=== PATIENT | female | born 1990 | race African-American/Black ===

== ENCOUNTER 2021-03-16 17:35 | Emergency (ER) | payer OTHER ==
[~2021-03-16] VITALS: Ht 177.8 cm; Wt 79.0 kg
[2021-03-16 17:37] VITALS: BP 149/86
[2021-03-21] MEDS ORDERED: KDUR10 MT (10:16)
[2021-03-21] MEDS ORDERED: IBUP-2030 MT (10:16)
== END 2021-03-16 22:30 | disposition left against medical advice (07) ==
LOC: ER 19:43
DX: R10.9 Unspecified abdominal pain (principal); Z53.21 Procedure and treatment not carried out due to patient leaving prior to being seen by health care provider

== ENCOUNTER 2021-03-18 07:29 | Emergency (ER) | payer OTHER ==
[~2021-03-18] VITALS: Ht 177.8 cm; Wt 100.0 kg
[2021-03-18 11:09] LABS: BASOPHILS % 1.3 % (0.0-2.0); HEMATOCRIT. 30.6 % (36.0-48.0); HEMOGLOBIN. 10.8 g/dL (12.0-16.0); LYMPHOCYTES % 41.8 % (20.0-50.0); MEAN CORPUSCULAR HEMOGLOBIN 33.3 pg (28.0-32.0); MEAN CORPUSCULAR VOLUME 94.4 fL (81.0-99.0); MONOCYTES % 8.9 % (2.0-8.0); PLATELET 209 x1000/uL (130-400); RED BLOOD CELL COUNT 3.25 mill/uL (4.2-5.4); RED CELL DISTRIBUTION WIDTH 13.5 % (11.6-14.6)
[2021-03-18 11:58] LABS: CHLORIDE 109 mEq/L (98-107)
[2021-03-18 12:21] LABS: B-HCG QUANTITATIVE 7509 mIU/mL (<3)
[2021-03-18 13:30] VITALS: BP 133/82
[2021-03-18] MEDS ORDERED: METHOTREXATE SODIUM/PF 50 MG/2 ML VIAL IM NR (14:00)
[2021-03-18] MEDS ORDERED: PROPOFOL 200MG/20ML VIAL IV ONE (23:45)
[2021-03-18] MEDS ORDERED: HYDROMORPHONE HCL/PF 2MG/ML (OR) ONE (23:45)
[2021-03-18] MEDS ORDERED: ROCURONIUM BROMIDE 10MG/ML VIAL 5ML IV ONE (23:45)
[2021-03-19] MEDS ORDERED: METOPROLOL TARTRATE 5MG/5ML VIAL IV ONE (00:22)
[2021-03-19] MEDS ORDERED: GLYCOPYRROLATE 0.2 MG/ML 2ML VIAL ONE (01:19)
[2021-03-19] MEDS ORDERED: NEOSTIGMINE METHYLSULFATE 1MG/ML 10 ML VIAL ONE (01:19)
[2021-03-19] MEDS ORDERED: GABA-529 MT (03:47)
[2021-03-21] MEDS ORDERED: KDUR10 MT (10:16)
[2021-03-21] MEDS ORDERED: IBUP-2030 MT (10:16)
== END 2021-03-18 14:55 | disposition left against medical advice (07) ==
LOC: ER 07:29 → CANBEDREQ 14:53 → ER 14:55
DX: O00.90 Unspecified ectopic pregnancy without intrauterine pregnancy (principal); N93.9 Abnormal uterine and vaginal bleeding, unspecified; F17.210 Nicotine dependence, cigarettes, uncomplicated; O26.891 Other specified pregnancy related conditions, first trimester; Z3A.01 Less than 8 weeks gestation of pregnancy; Z88.0 Allergy status to penicillin
CPT/HCPCS: 36415; 76801; 76817; 80053; 81025; 84702; 85025; 86850; 86900; 86901; 87426; 88302; 99285; J1170; J2704; J2710; J3490; J9260

== ENCOUNTER 2021-03-18 15:10 | Inpatient (IN) | payer OTHER ==
[~2021-03-18] VITALS: Ht 170.2 cm; Wt 82.1 kg
[2021-03-18] MEDS ORDERED: MORPHINE SULFATE 4 MG/ML CPJ (NOT FOR IM USE) IV ONE (15:45)
[2021-03-18 17:49] LABS: BASOPHILS % 0.4 % (0.0-2.0); EOSINOPHILS % 0.1 % (0.0-5.0); HEMATOCRIT. 28.5 % (36.0-48.0); HEMOGLOBIN. 10.2 g/dL (12.0-16.0); LYMPHOCYTES % 12.8 % (20.0-50.0); MEAN CORPUSCULAR HEMOGLOBIN 33.5 pg (28.0-32.0); MEAN CORPUSCULAR VOLUME 93.9 fL (81.0-99.0); MEAN PLATELET VOLUME 8.4 fl (7.4-10.4); MONOCYTES % 4.1 % (2.0-8.0); NEUTROPHILS % 82.6 % (40.0-76.0); PLATELET 194 x1000/uL (130-400); RED BLOOD CELL COUNT 3.03 mill/uL (4.2-5.4); RED CELL DISTRIBUTION WIDTH 13.3 % (11.6-14.6)
[2021-03-18 18:00] LABS: CHLORIDE 110 mEq/L (98-107)
[2021-03-18 18:23] LABS: B-HCG QUANTITATIVE 6133 mIU/mL (<3)
[2021-03-18] MEDS ORDERED: METHOTREXATE SODIUM/PF 50 MG/2 ML VIAL IM NR (18:30)
[2021-03-18] MEDS ORDERED: ONDANSETRON HCL 4MG/2ML INJ IV PRN (21:00)
[2021-03-18] MEDS ORDERED: DEXT 5%/0.9% NACL KCL 20MEQ/L 1,000 ML IV ONE (21:00)
[2021-03-18] MEDS ORDERED: NALOXONE HCL 0.4MG/ML VIAL IV PRN (21:00)
[2021-03-18] MEDS: MORPHINE SULFATE 4 MG/ML CPJ (NOT FOR IM USE) IV PRN (21:41)
[2021-03-19] MEDS ORDERED: CLINDAMYCIN 900 MG PREMIX 50 ML IV ONE
[2021-03-19] MEDS ORDERED: HYDROMORPHONE HCL/PF 2MG/ML CPJ IV PRN (01:15)
[2021-03-19] MEDS ORDERED: MEPERIDINE HCL/PF 25MG/ML CPJ IV PRN (01:15)
[2021-03-19] MEDS ORDERED: LABETALOL 5MG/ML SYR 20 MG/4 ML SYRINGE IV PRN (01:15)
[2021-03-19] MEDS ORDERED: ONDANSETRON HCL 4MG/2ML INJ IV PRN (01:15)
[2021-03-19] MEDS ORDERED: HYDROCODONE/ACETAMINOPHEN 5/325MG TABLET PO PRN (01:45)
[2021-03-19 02:30] VITALS: BP 147/58
[2021-03-19] MEDS ORDERED: GABA-529 MT (03:47)
[2021-03-19 04:00] VITALS: BP_SYST 147; BP_SYST 94; BP_DIAS 56; BP_DIAS 58
[2021-03-19] MEDS: MORPHINE SULFATE 4 MG/ML CPJ (NOT FOR IM USE) IV PRN ×5 (04:11→20:32)
[2021-03-19 08:00] VITALS: BP 119/79
[2021-03-19] MEDS: LACTATED RINGERS 1,000 ML IV SCH ×2 (09:40→16:29)
[2021-03-19 12:00] VITALS: BP 137/81
[2021-03-19 13:24] LABS: BASOPHILS % 0.1 % (0.0-2.0); HEMATOCRIT. 22.3 % (36.0-48.0); LYMPHOCYTES % 13.1 % (20.0-50.0); MEAN CORPUSCULAR HEMOGLOBIN 34.1 pg (28.0-32.0); MEAN CORPUSCULAR VOLUME 94.6 fL (81.0-99.0); MEAN PLATELET VOLUME 8.4 fl (7.4-10.4); MONOCYTES % 5.7 % (2.0-8.0); NEUTROPHILS % 81.1 % (40.0-76.0); PLATELET 174 x1000/uL (130-400); RED BLOOD CELL COUNT 2.36 mill/uL (4.2-5.4); RED CELL DISTRIBUTION WIDTH 13.3 % (11.6-14.6)
[2021-03-19 13:36] LABS: CHLORIDE 108 mEq/L (98-107)
[2021-03-19] MEDS ORDERED: HYDRALAZINE 10 MG in SODIUM CHLORIDE 0.9% 49.5 ML IV PRN (14:45)
[2021-03-19 16:00] VITALS: BP 140/70
[2021-03-19] MEDS ORDERED: POTASSIUM CHLORIDE 20MEQ TABLET SR PO NR (17:00)
[2021-03-19 20:17] VITALS: BP 124/54
[2021-03-19 21:18] LABS: HEMATOCRIT 20.9 % (36.0-48.0); HEMOGLOBIN 7.4 g/dL (12.0-16.0)
[2021-03-20] MEDS: MORPHINE SULFATE 4 MG/ML CPJ (NOT FOR IM USE) IV PRN ×6 (00:51→21:39)
[2021-03-20] MEDS: LACTATED RINGERS 1,000 ML IV SCH ×4 (00:52→18:59)
[2021-03-20 01:15] VITALS: BP 142/62
[2021-03-20 04:42] VITALS: BP 126/66
[2021-03-20 05:38] LABS: BASOPHILS % 0.3 % (0.0-2.0); EOSINOPHILS % 0.1 % (0.0-5.0); HEMOGLOBIN. 7.2 g/dL (12.0-16.0); MEAN CORPUSCULAR HEMOGLOBIN 33.4 pg (28.0-32.0); MEAN CORPUSCULAR VOLUME 96.3 fL (81.0-99.0); MEAN PLATELET VOLUME 8.3 fl (7.4-10.4); MONOCYTES % 7.9 % (2.0-8.0); NEUTROPHILS % 60.7 % (40.0-76.0); PLATELET 171 x1000/uL (130-400); RED BLOOD CELL COUNT 2.14 mill/uL (4.2-5.4); RED CELL DISTRIBUTION WIDTH 13.8 % (11.6-14.6)
[2021-03-20 05:43] LABS: CHLORIDE 112 mEq/L (98-107)
[2021-03-20 05:56] LABS: LDL CHOLESTEROL 112 mg/dL (5-100)
[2021-03-20 05:58] LABS: HDL CHOLESTEROL 43 mg/dL (40-59)
[2021-03-20 06:47] LABS: HEMATOCRIT. 20.6 % (36.0-48.0)
[2021-03-20 08:00] VITALS: BP 143/75
[2021-03-20] MEDS ORDERED: POTASSIUM CHLORIDE 20MEQ TABLET SR PO SCH (08:00)
[2021-03-20] MEDS ORDERED: MULTIVITAMINS,THER W-MINERALS TABLET PO SCH (09:00)
[2021-03-20] MEDS: FERROUS SULFATE 325MG TABLET PO SCH ×3 (09:14→17:29)
[2021-03-20 12:00] VITALS: BP 142/70
[2021-03-20 16:14] LABS: CHLORIDE 110 mEq/L (98-107)
[2021-03-20 21:01] VITALS: BP 118/85
[2021-03-21 00:07] VITALS: BP 129/75
[2021-03-21] MEDS: LACTATED RINGERS 1,000 ML IV SCH (01:00)
[2021-03-21 07:49] VITALS: BP 129/75
[2021-03-21] MEDS ORDERED: KDUR10 MT (10:16)
[2021-03-21] MEDS ORDERED: IBUP-2030 MT (10:16)
== END 2021-03-21 08:30 | disposition home or self-care (01) | DRG 547 ==
LOC: ER 15:10 → MICUSO 15:44 → 6EST 03-19 03:45
PROVIDERS: ADMIT Obstetrics & Gynecology; ATTEND Obstetrics & Gynecology
PROC: 10D20ZZ Extraction of Products of Conception, Ectopic, Open Approach (ICD-10-PCS; principal; 2021-03-19)
PROC: 0UB60ZZ Excision of Left Fallopian Tube, Open Approach (ICD-10-PCS; 2021-03-19)
DX: O00.102 Left tubal pregnancy without intrauterine pregnancy (principal); K66.1 Hemoperitoneum; O16.1 Unspecified maternal hypertension, first trimester; O99.321 Drug use complicating pregnancy, first trimester; O99.281 Endocrine, nutritional and metabolic diseases complicating pregnancy, first trimester; E78.00 Pure hypercholesterolemia, unspecified; O99.331 Smoking (tobacco) complicating pregnancy, first trimester; F17.210 Nicotine dependence, cigarettes, uncomplicated; F12.90 Cannabis use, unspecified, uncomplicated; E87.6 Hypokalemia; O99.011 Anemia complicating pregnancy, first trimester; D64.9 Anemia, unspecified; R73.9 Hyperglycemia, unspecified; Z20.822 Contact with and (suspected) exposure to COVID-19; O99.211 Obesity complicating pregnancy, first trimester; E66.9 Obesity, unspecified; O26.891 Other specified pregnancy related conditions, first trimester; Z79.899 Other long term (current) drug therapy; Z88.0 Allergy status to penicillin; Z91.010 Allergy to peanuts; Z3A.00 Weeks of gestation of pregnancy not specified
CPT/HCPCS: 36415; 80048; 80053; 80061; 84702; 85014; 85018; 85025; 85044; 86850; 86900; 87426; 99285; J2175; J2270; J2405; J3490; J7120; J9260

== ENCOUNTER 2023-01-29 20:45 | Emergency (ER) | payer OTHER ==
[~2023-01-29] VITALS: Ht 177.8 cm; Wt 91.0 kg
[~2023-01-29 20:45] MED LIST: GABA-529 MT; IBUP-2030 MT; POTA-189 MT
[2023-01-29 20:48] VITALS: O2SAT 98
[2023-01-29] MEDS ORDERED: LIDOCAINE 5% PATCH TOP SCH (21:00)
[2023-01-29] MEDS ORDERED: ACETAMINOPHEN 325MG TABLET PO ONE (21:00)
[2023-01-29 22:04] LABS: HCG SCREEN NEGATIVE
[2023-01-29] MEDS ORDERED: MORPHINE SULFATE 4 MG/ML CPJ (NOT FOR IM USE) IV NR (22:45)
[2023-01-30] MEDS ORDERED: NAPR-1074 MT (00:32)
[2023-01-30] MEDS ORDERED: BACL-141 MT (00:32)
[2023-01-30 01:00] VITALS: BP 151/98; PULSE 71; RESP 15; TEMP 98.9
== END 2023-01-30 01:44 | disposition home or self-care (01) ==
LOC: ER 20:45
DX: S20.212A Contusion of left front wall of thorax, initial encounter (principal); S13.4XXA Sprain of ligaments of cervical spine, initial encounter; F12.10 Cannabis abuse, uncomplicated; Z88.0 Allergy status to penicillin; V49.59XA Passenger injured in collision with other motor vehicles in traffic accident, initial encounter; Y93.89 Activity, other specified; Y92.89 Other specified places as the place of occurrence of the external cause; Y99.8 Other external cause status
CPT/HCPCS: 99285; 72125; 96374; 84703; 71250; 93005; J2270